=== PATIENT | male | born 1955 | race Caucasian/White ===

== ENCOUNTER 2024-03-11 05:45 | Inpatient (IN) | payer OTHER ==
[~2024-03-11] VITALS: Ht 195.6 cm; Wt 114.3 kg
[2024-03-11 07:09] LABS: BASOPHILS % (AUTO) 0.4 % (0.0-2.0); EOSINOPHILS # (AUTO) 0.5 K/uL (0.0-0.7); EOSINOPHILS % (AUTO) 4.5 % (0.0-6.0); HEMATOCRIT 42 % (39-51); HEMOGLOBIN 13.7 g/dL (13.5-17.5); LYMPHOCYTES # (AUTO) 1.1 K/uL (0.8-4.8); LYMPHOCYTES % (AUTO) 10.8 % (20.0-44.0); MEAN CORPUSCULAR HEMOGLOBIN 32 PG (26.0-33.0); MEAN CORPUSCULAR HGB CONC 33 g/dl (31.0-36.0); MEAN CORPUSCULAR VOLUME 96 fL (80-96); MONOCYTES # (AUTO) 0.9 K/uL (0.1-1.30); NEUTROPHILS # (AUTO) 7.5 K/uL (1.8-8.9); NEUTROPHILS % (AUTO) 75.3 % (43.0-81.0); PLATELET COUNT (AUTO) 209 K/uL (150-450); RED BLOOD CELL COUNT(AUTO) 4.32 MIL/uL (4.5-6.0); RED CELL DISTRIBUTION WIDTH 14.2 % (11.5-15.0)
[2024-03-11] MEDS ORDERED: hydrALAZINE HCL IV 20 MG VIAL ONE (07:23)
[2024-03-11 07:26] LABS: CALCIUM, SERUM 8.8 mg/dL (8.5-10.1); CARBON DIOXIDE 30 mmol/L (21-32); CHLORIDE 104 mmol/L (98-107); CREATININE 1.1 mg/dL (0.6-1.3); GLUCOSE 128 mg/dL (74-106); POTASSIUM 4.2 mmol/L (3.5-5.1); SODIUM SERUM 142 mmol/L (136-145); UREA NITROGEN, BLOOD 18 mg/dL (7-18)
[2024-03-11] MEDS: hydrALAZINE HCL IV 20 MG VIAL IV ONE (07:26)
[2024-03-11 07:34] LABS: ALANINE AMINOTRANSFERASE 27 U/L (12-78); ALBUMIN 3.9 g/dL (3.4-5.0); ALKALINE PHOSPHATASE 60 U/L (46-116); ASPARTATE AMINOTRANSFERASE 18 U/L (15-37); BILIRUBIN,DIRECT 0.1 mg/dL (0.0-0.2); BILIRUBIN,TOTAL 0.3 mg/dL (0.2-1.0); NT-PRO BNP 1823 pg/mL (0-125); TOTAL PROTEIN, SERUM 7.1 g/dL (6.4-8.2)
[2024-03-11] MEDS ORDERED: FUROSEMIDE 20 MG/2 ML VIAL ONE (07:45)
[2024-03-11] MEDS: FUROSEMIDE 20 MG/2 ML VIAL IV ONE (07:54)
[2024-03-11] MEDS ORDERED: ALLO300T2 PO (08:43)
[2024-03-11] MEDS: FUROSEMIDE 40 MG/4 ML VIAL IV SCH (11:23)
[2024-03-11] MEDS: POTASSIUM CHLORIDE 20 MEQ TAB.PRT.SR PO SCH (11:23)
[2024-03-11] MEDS: CARVEDILOL 12.5 MG TABLET PO SCH (11:24)
[2024-03-11] MEDS: VALSARTAN 80 MG TABLET PO SCH (11:24)
[2024-03-11] MEDS: ENOXAPARIN SODIUM 40 MG/0.4 ML DISP.SYRIN SQ SCH (11:26)
[2024-03-11 11:51] LABS: THYROID STIMULATING HORMONE 10.42 uIU/mL (0.358-3.74)
[2024-03-11] MEDS ORDERED: Z GUARD REMEDY 4 OZ OINT TP PRN (13:00)
[2024-03-11] MEDS ORDERED: MAG HYDROX/AL HYDROX/SIMETH 30 ML UDC PO PRN (13:00)
[2024-03-11] MEDS ORDERED: MAGNESIUM HYDROXIDE 30 ML UDC PO PRN (13:00)
[2024-03-11] MEDS ORDERED: ONDANSETRON HCL/PF 4 MG/2 ML VIAL IVP PRN (13:00)
[2024-03-11] MEDS: ACETAMINOPHEN 325 MG TABLET PO PRN (14:35)
[2024-03-11 16:00] VITALS: BP 168/106; TEMP 98.1; O2SAT 100
[2024-03-11 16:07] LABS: CHOLESTEROL 207 mg/dL (<200); HDL CHOLESTEROL 38 mg/dL (40-60); LDL 132 mg/dL (0-99); TRIGLYCERIDES 331 mg/dL (30-150)
[2024-03-11 20:00] VITALS: BP 158/113; TEMP 98.2; O2SAT 96
[2024-03-11 20:33] VITALS: BP 158/113; TEMP 98.2; O2SAT 96
[2024-03-12] VITALS (12 sets, daily range): BP systolic 90–170; BP diastolic 50–104; TEMP 97.7–98.4; O2SAT 96–99
[2024-03-12 07:17] LABS: BASOPHILS % (AUTO) 0.4 % (0.0-2.0); EOSINOPHILS # (AUTO) 0.3 K/uL (0.0-0.7); EOSINOPHILS % (AUTO) 3.7 % (0.0-6.0); HEMATOCRIT 45 % (39-51); HEMOGLOBIN 15.2 g/dL (13.5-17.5); LYMPHOCYTES # (AUTO) 0.9 K/uL (0.8-4.8); LYMPHOCYTES % (AUTO) 9.3 % (20.0-44.0); MEAN CORPUSCULAR HEMOGLOBIN 32 PG (26.0-33.0); MEAN CORPUSCULAR HGB CONC 34 g/dl (31.0-36.0); MEAN CORPUSCULAR VOLUME 95 fL (80-96); MONOCYTES % (AUTO) 11.2 % (2.0-12.0); NEUTROPHILS % (AUTO) 75.4 % (43.0-81.0); PLATELET COUNT (AUTO) 217 K/uL (150-450); RED BLOOD CELL COUNT(AUTO) 4.78 MIL/uL (4.5-6.0); RED CELL DISTRIBUTION WIDTH 13.9 % (11.5-15.0); WHITE BLOOD COUNT (AUTO) 9.2 K/uL (4.3-11.0)
[2024-03-12 08:15] LABS: ALBUMIN 4.2 g/dL (3.4-5.0); BILIRUBIN,TOTAL 0.7 mg/dL (0.2-1.0); CALCIUM, SERUM 10.4 mg/dL (8.5-10.1); CREATININE 1.3 mg/dL (0.6-1.3); MAGNESIUM 2.1 mg/dL (1.8-2.4); PHOSPHORUS 4.6 mg/dL (2.5-4.9); TOTAL PROTEIN, SERUM 7.7 g/dL (6.4-8.2)
[2024-03-12] MEDS: FUROSEMIDE 100 MG/10 ML VIAL IV SCH (09:48)
[2024-03-12] MEDS: ISOSORBIDE DINITRATE (20MG) 20 MG TABLET PO SCH (09:49)
[2024-03-12] MEDS: hydrALAZINE HCL 50 MG TABLET PO SCH (09:49)
[2024-03-12] MEDS: POTASSIUM CHLORIDE 20 MEQ TAB.PRT.SR PO SCH (09:53)
[2024-03-12] MEDS: ACETAMINOPHEN 325 MG TABLET PO PRN (16:11)
[2024-03-13 03:52] VITALS: BP 139/79; TEMP 97.3; O2SAT 95
[2024-03-13 07:10] LABS: BASOPHILS % (AUTO) 0.4 % (0.0-2.0); EOSINOPHILS # (AUTO) 0.3 K/uL (0.0-0.7); EOSINOPHILS % (AUTO) 3.7 % (0.0-6.0); HEMATOCRIT 43 % (39-51); HEMOGLOBIN 14.4 g/dL (13.5-17.5); LYMPHOCYTES # (AUTO) 0.9 K/uL (0.8-4.8); LYMPHOCYTES % (AUTO) 9.7 % (20.0-44.0); MEAN CORPUSCULAR HEMOGLOBIN 32 PG (26.0-33.0); MEAN CORPUSCULAR HGB CONC 34 g/dl (31.0-36.0); MEAN CORPUSCULAR VOLUME 95 fL (80-96); MONOCYTES % (AUTO) 10.7 % (2.0-12.0); NEUTROPHILS # (AUTO) 6.7 K/uL (1.8-8.9); NEUTROPHILS % (AUTO) 75.5 % (43.0-81.0); PLATELET COUNT (AUTO) 230 K/uL (150-450); RED CELL DISTRIBUTION WIDTH 13.8 % (11.5-15.0); WHITE BLOOD COUNT (AUTO) 8.9 K/uL (4.3-11.0)
[2024-03-13 07:27] LABS: ALBUMIN 3.8 g/dL (3.4-5.0); BILIRUBIN,TOTAL 0.6 mg/dL (0.2-1.0); CALCIUM, SERUM 9.3 mg/dL (8.5-10.1); CREATININE 1.5 mg/dL (0.6-1.3); MAGNESIUM 2.3 mg/dL (1.8-2.4); PHOSPHORUS 4.5 mg/dL (2.5-4.9); TOTAL PROTEIN, SERUM 7.2 g/dL (6.4-8.2)
[2024-03-13 08:00] VITALS: BP 148/101; TEMP 97.5; O2SAT 95
[2024-03-13] MEDS: HYDROCODONE/APAP 5/325MG TABLET PO PRN (08:22)
[2024-03-13] MEDS: SPIRONOLACTONE 25 MG TABLET PO SCH (10:53)
[2024-03-13] MEDS: CARVEDILOL 12.5 MG TABLET PO SCH ×2 (10:54→21:07)
[2024-03-13 16:00] VITALS: BP 130/90; TEMP 98.4; O2SAT 96
[2024-03-13 20:00] VITALS: BP 145/96; TEMP 98.2; O2SAT 98
[2024-03-13] MEDS: HYDROCODONE/APAP 5/325MG TABLET PO ONE (21:51)
[2024-03-14] VITALS: BP 123/73; TEMP 98.6; O2SAT 97
[2024-03-14 02:21] LABS: APPEARANCE,URINE TURBID (CLEAR); BILIRUBIN,URINE NEGATIVE (NEGATIVE); BLOOD, URINE TRACE-INTA Ery/uL (NEGATIVE); COLOR,URINE YELLOW (YELLOW); KETONES,URINE NEGATIVE (NEGATIVE); LEUKOCYTE ESTERASE ,URINE NEGATIVE (NEGATIVE); NITRITE, URINE NEGATIVE (NEGATIVE); PH,URINE 5.5 (5.0-8.0); PROTEIN,URINE TRACE mg/dl (NEGATIVE); UGLUCOSE NEGATIVE (NEGATIVE); UROBILINOGEN,URINE 0.2 EU/dL (0.2)
[2024-03-14 02:25] LABS: ADD URINE CULTURE NO; BACTERIA,URINE Rare /HPF (None Seen); EOSINOPHIL,URINE None Seen; SQUAMOUS EPITHELIAL CELL,UR Few /HPF (None Seen); WBC,URINE 0-2 /HPF (0-3)
[2024-03-14 02:30] LABS: CREATININE, URINE 290.4 MG/DL (30.0-125.0); URINE TOTAL PROTEIN 42.3 mg/dL (0-11.9)
[2024-03-14 04:00] VITALS: BP 128/82; TEMP 98.2; O2SAT 95
[2024-03-14 07:56] LABS: BASOPHILS % (AUTO) 0.3 % (0.0-2.0); EOSINOPHILS # (AUTO) 0.3 K/uL (0.0-0.7); EOSINOPHILS % (AUTO) 4.1 % (0.0-6.0); HEMATOCRIT 42 % (39-51); HEMOGLOBIN 13.9 g/dL (13.5-17.5); LYMPHOCYTES % (AUTO) 11.6 % (20.0-44.0); MEAN CORPUSCULAR HEMOGLOBIN 32 PG (26.0-33.0); MEAN CORPUSCULAR HGB CONC 33 g/dl (31.0-36.0); MEAN CORPUSCULAR VOLUME 96 fL (80-96); MONOCYTES # (AUTO) 0.9 K/uL (0.1-1.30); MONOCYTES % (AUTO) 11.3 % (2.0-12.0); NEUTROPHILS % (AUTO) 72.7 % (43.0-81.0); PLATELET COUNT (AUTO) 222 K/uL (150-450); RED BLOOD CELL COUNT(AUTO) 4.42 MIL/uL (4.5-6.0); RED CELL DISTRIBUTION WIDTH 13.9 % (11.5-15.0); WHITE BLOOD COUNT (AUTO) 8.3 K/uL (4.3-11.0)
[2024-03-14 08:00] VITALS: BP 147/78; TEMP 98.2; O2SAT 96
[2024-03-14 08:24] LABS: CALCIUM, SERUM 9.7 mg/dL (8.5-10.1); CREATININE 1.3 mg/dL (0.6-1.3); POTASSIUM 4.3 mmol/L (3.5-5.1)
[2024-03-14 08:49] VITALS: BP 147/78
[2024-03-14] MEDS: ATORVASTATIN 10 MG TABLET PO SCH (08:52)
[2024-03-14] MEDS ORDERED: CARV12.52 PO (10:54)
[2024-03-14] MEDS ORDERED: ATOR10TA PO ×2 (10:54→20:12)
[2024-03-14] MEDS ORDERED: SPIR25TA6 PO ×2 (10:54→20:12)
[2024-03-14] MEDS ORDERED: CARV6.252 PO (20:12)
== END 2024-03-14 13:45 | disposition home or self-care (01) | DRG 291 ==
LOC: ER 05:47 → TELE1 09:40 → TELE 13:29
PROVIDERS: ATTEND Nurse Practitioner Family
DX: I11.0 Hypertensive heart disease with heart failure (principal); I50.23 Acute on chronic systolic (congestive) heart failure; N17.9 Acute kidney failure, unspecified; I25.10 Atherosclerotic heart disease of native coronary artery without angina pectoris; Z95.5 Presence of coronary angioplasty implant and graft; Z91.148 Patient's other noncompliance with medication regimen for other reason; M89.8X9 Other specified disorders of bone, unspecified site; Z88.0 Allergy status to penicillin; Z87.442 Personal history of urinary calculi; E78.5 Hyperlipidemia, unspecified; M10.9 Gout, unspecified; E86.9 Volume depletion, unspecified; E66.9 Obesity, unspecified; Z68.29 Body mass index [BMI] 29.0-29.9, adult; Z79.899 Other long term (current) drug therapy
CPT/HCPCS: 36415; 71045-TC; 76770-TC; 80048-TC; 80053-TC; 80061-TC; 80076-TC; 81001; 82570-TC; 83735-TC; 83880; 84100-TC; 84300-TC; 84439-TC; 84443-TC; 84484-TC; 85025-TC; 93307-TC; 97116-TC; 97530-TC; A4223; G0378; J0360; J1650; J1940; J7030

== ENCOUNTER 2024-08-29 14:36 | Emergency (ER) | payer OTHER ==
[~2024-08-29] VITALS: Ht 182.9 cm; Wt 98.0 kg
[~2024-08-29 14:36] MED LIST: ALLO300T2 PO; ATOR10TA PO; CARV12.52 PO; CARV6.252 PO; SPIR25TA6 PO
[2024-08-29 18:10] VITALS: BP 183/110; TEMP 97.9; O2SAT 98
== END 2024-08-29 18:10 | disposition home or self-care (01) ==
LOC: ER 14:40
DX: T42.6X1A Poisoning by other antiepileptic and sedative-hypnotic drugs, accidental (unintentional), initial encounter (principal); I10 Essential (primary) hypertension; I25.10 Atherosclerotic heart disease of native coronary artery without angina pectoris; Z79.899 Other long term (current) drug therapy; Z88.0 Allergy status to penicillin; Y92.89 Other specified places as the place of occurrence of the external cause
CPT/HCPCS: 82962-TC